=== PATIENT | male | born 1935 | race Hispanic/Latino ===

== ENCOUNTER 2020-11-14 09:45 | Emergency (ER) | payer MEDICARE ==
--- NOTE | 2020-11-14 11:46 | Emergency Department Report ---
HPI - General Chief Complaint: Extremity Injury, Lower Time Seen by Provider: 11/14/20 11:35 - HPI HPI: Room 35 The patient is an 85-year-old male present with a chief complaint of left thigh pain. Patient states he has had pain to the medial aspect of the left upper thigh for the past 3 weeks. Patient states the pain began 3 to 4 days after his first Covid vaccination (10/18/2020). Patient denied any preceding trauma. Patient denies testicular pain. Patient denies nausea/vomiting or abdominal pain. Patient denies dysuria. Patient states he has the pain whenever he weight bears ED Past Medical Hx - Past Medical History Hx Hypertension: Yes Hx GERD: Yes Additional medical history: PROSTATE PROBLEM/GERD - Surgical History Additional Surgical History: PROSTATE SURGERY 05/18/15 - Social History Smoking Status: Former Smoker (None x20 years) Substance Use Type: None - Medications Home Medications: Home Medications Medication Instructions Recorded Confirmed Last Taken Type Pantoprazole [Protonix TAB] 40 mg PO QDAY 05/22/15 09/02/15 09/01/15 History Tamsulosin [Flomax] 0.4 mg PO QDAY 05/22/15 09/02/15 09/01/15 History Apixaban [Eliquis] 5 mg PO Q12HR #14 tablet 07/13/20 Unknown Rx Ascorbic Acid [Vitamin C] 1,000 mg PO BID #14 tablet 07/13/20 Unknown Rx Cholecalciferol (Vitamin D3) 5,000 unit PO DAILY #7 tablet 07/13/20 Unknown Rx [Vitamin D3] Zinc Sulfate 220 mg PO BID #14 capsule 07/13/20 Unknown Rx dexAMETHasone [Decadron] 6 mg PO Q24HR #5 tablet 07/13/20 Unknown Rx Cyclobenzaprine [Flexeril] 10 mg PO TID PRN #10 tablet 11/14/20 Unknown Rx Ibuprofen [Motrin 800 MG tab] 800 mg PO Q8HR PRN #20 tablet 11/14/20 Unknown Rx ED Review of Systems ROS: Stated complaint: L LEG PAIN Other details as noted in HPI Constitutional: denies: fever Eyes: denies: eye pain ENT: denies: throat pain Respiratory: no symptoms reported Cardiovascular: denies: chest pain Endocrine: no symptoms reported Gastrointestinal: denies: abdominal pain, nausea, vomiting Genitourinary: denies: dysuria, testicular pain Musculoskeletal: myalgia Neurological: denies: headache Physical Exam - Physical Exam Vital Signs: Vital Signs 11/14/20 10:05 Temperature 97.9 F Pulse Rate 107 H Respiratory 20 Rate Blood Pressure 123/85 O2 Sat by Pulse 98 Oximetry Physical Exam: GENERAL: The patient is well-developed well-nourished male sitting on stretcher not appearing to be in acute distress. [] HEENT: Normocephalic. Atraumatic. Extraocular motions are intact. Patient has moist mucous membranes. NECK: Supple. Trachea midline CHEST/LUNGS: Clear to auscultation. There is no respiratory distress noted. HEART/CARDIOVASCULAR: Regular. There is no tachycardia. There is no gallop rub or murmur. ABDOMEN: Abdomen is soft, nontender. Patient has normal bowel sounds. There is no abdominal distention. SKIN: There is no rash. There is no edema. There is no diaphoresis. NEURO: The patient is awake, alert, and oriented. The patient is cooperative. The patient has no focal neurologic deficits. The patient has normal speech MUSCULOSKELETAL: There is no evidence of acute injury. ED Course Vital Signs 11/14/20 10:05 Temperature 97.9 F Pulse Rate 107 H Respiratory 20 Rate Blood Pressure 123/85 O2 Sat by Pulse 98 Oximetry ED Medical Decision Making - Lab Data Result diagrams: 11/14/20 12:02 11/14/20 12:02 Laboratory Tests 11/14/20 11/14/20 11/14/20 12:02 12:02 12:02 WBC 6.6 RBC 4.67 Hgb 15.4 H Hct 44.0 MCV 94 MCH 33 H MCHC 35 H RDW 13.5 Plt Count 150 Lymph % (Auto) 40.2 H Faulk % (Auto) 12.0 H Eos % (Auto) 3.1 Baso % (Auto) 0.9 Lymph # (Auto) 2.7 Faulk # (Auto) 0.8 Eos # (Auto) 0.2 Baso # (Auto) 0.1 Seg Neutrophils % 43.8 Seg Neutrophils # 2.9 Sodium 141 Potassium 4.9 Chloride 104.8 Carbon Dioxide 28 Anion Gap 13 BUN 15 Creatinine 1.1 Estimated GFR > 60 BUN/Creatinine Ratio 14 Glucose 89 Calcium 8.9 Total Creatine Kinase 57 - Radiology Data Radiology results: report reviewed (Left lower extremity Doppler, CTA abdomen femoral artery), image reviewed (Left lower extremity Doppler, CTA abdomen femoral artery) [facility] [address] [place] [address] Vascular Lab Report Signed Patient: MARV JOHNSON MR#: [id number] : 1935 Acct:[id number] Age/Sex: 85 / M ADM Date: 11/14/20 Loc: ED Att ending Dr: Ordering Physician: STEVEN TELLO MD Date of Service: 11/14/20 Procedure(s): VL venous duplex LE LT Accession Number(s): [id number] cc: STEVEN TELLO MD DUPLEX DOPPLER LOWER EXTREMITY VEINS, LEFT INDICATION / CLINICAL INFORMATION: Left leg pain. TECHNIQUE: Duplex doppler imaging was performed through the veins of the left lower extremity using venous compression and other maneuvers. COMPARISON: 07/11/2020 FINDINGS: LEFT COMMON FEMORAL VEIN: Negative. LEFT FEMORAL VEIN: Negative. LEFT POPLITEAL VEIN: Negative. LEFT CALF VEINS: Negative. ADDITIONAL FINDINGS: None. IMPRESSION: 1. No sonographic evidence for DVT in the left lower extremity. Signer Name: Rene Vieira MD Signed: 11/14/2020 1:45 PM Workstation Name: [id number] Transcribed By: RH Dictated By: RENE VIEIRA III Electronically Authenticated By: RENE VIEIRA III Signed Date/Time: 11/14/20 134 DD/ 44 TD/TT: Print Cancel [address] [address] Cat Scan Report Signed Patient: MARV JOHNSON MR#: [id number] : 1935 Acct:[id number] Age/Sex: 85 / M ADM Date: 11/14/20 Loc: ED Attending Dr: Ordering Physician: STEVEN TELLO MD Date of Service: 11/14/20 Procedure(s): CT angio abd/femoral abd aorta Accession Number(s): [id number] cc: STEVEN TELLO MD CTA ABDOMEN, PELVIS, AND LOWER EXTREMITIES WITH AND WITHOUT CONTRAST INDICATION: Left inguinal fossa pain. Left lower extremity pain. TECHNIQUE: Axial CT images were obtained through the abdomen, pelvis and lower extremities after injection of 100 cc Omnipaque 350 IV contrast. 3 plane MIP reconstructions were produced. All CT scans at this location are performed using CT dose reduction for ALARA by means of automated exposure control. COMPARISON: None available. FINDINGS: CTA ABDOMEN: Abdominal Aorta: Normal in caliber and mildly calcified without other significant abnormalities. Celiac Artery: No significant abnormality. Superior Mesenteric Artery: Mild nonobstructive atherosclerosis is seen at the origin of the SMA without other significant abnormalities. Right Renal Artery: Mild nonobstructive atherosclerosis is seen at the vessel origin without other significant abnormalities. Left Renal Artery: Mild nonobstructive atherosclerosis is seen at the vessel origin without other significant abnormalities. Inferior Mesenteric Artery: No significant abnormality. CTA PELVIS: RIGHT: - Common Iliac Artery: Mild nonobstructive atherosclerosis is noted without other significant abnormalities. - Internal Iliac Artery: Mild nonobstructive atherosclerosis is noted without other significant abnormalities. - External Iliac Artery: Mild nonobstructive atherosclerosis is seen distally without other significant abnormalities. LEFT: - Common Iliac Artery: Mild nonobstructive atherosclerosis is present without other significant abnormalities. - Internal Iliac Artery: Mild nonobstructive atherosclerosis is present without other significant abnormalities. - External Iliac Artery: No significant abnormality. CTA LOWER EXTREMITIES: RIGHT LOWER EXTREMITY: - Common Femoral Artery: No significant abnormality. - Superficial Femoral Artery: Mild nonobstructive atherosclerosis is seen along the distal third of the vessel without other significant abnormalities. - Profunda Femoral Artery: No significant abnormality. - Popliteal Artery: Mild nonobstructive atherosclerosis is noted without other significant abnormalities. - Anterior Tibial Artery: There is short segment occlusion along the proximal third of the leg with distal reconstitution of flow. Additional short segment occlusions are noted distally with reconstitution of flow subsequently. The dorsalis pedis artery is occluded at its origin with distal reconstitution of flow. - Tibioperoneal Trunk: Mild nonobstructive atherosclerosis is noted without other significant abnormalities. - Posterior Tibial Artery: Patent and normal in caliber at its origin with occlusion noted along the middle third of the leg with distal reconstitution of flow just above the ankle. - Peroneal Artery: No significant abnormality. - Ankle runoff: Three vessel. LEFT LOWER EXTREMITY: - Common Femoral Artery: No significant abnormality. - Superficial Femoral Artery: No significant abnormality. - Profunda Femoral Artery: No significant abnormality. - Popliteal Artery: No significant abnormality. - Anterior Tibial Artery: Moderate calcification is seen along the proximal third of the vessel with associated mild to moderate obstruction. No other significant abnormalities. - Tibioperoneal Trunk: No significant abnormality. - Posterior Tibial Artery: Short segment occlusion is seen along the distal third of the leg with reconstitution of flow via collaterals. No other significant abnormality. - Peroneal Artery: No significant abnormality. - Ankle runoff: Three vessel. NONTARGET STRUCTURES: CHEST: Mild emphysema is noted along the lung bases with atelectasis/scarring. There is a moderate hiatal hernia without an associated acute complication. ABDOMEN:No significant abnormality. PELVIS:No significant abnormality. LOWER EXTREMITIES:No significant abnormality. SKELETAL: No acute abnormalities. The bones are demineralized with moderate degenerative changes throughout the spine and pelvis. ADDITIONAL FINDINGS: None. IMPRESSION: 1. No acute abnormalities to explain the patient's left inguinal pain. 2. 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 Otherwise mild nonobstructive atherosclerosis along the right lower extremity arteries as above. 3. Mild to moderate obstruction of the proximal left anterior tibial artery and distal occlusion of the left posterior tibial artery with rec onstitution of flow. No other significant arterial disease along the left lower extremity. 4. Additional findings as above. Signer Name: Lan Cervantes MD Signed: 11/14/2020 3:25 PM Workstation Name: [id number] Transcribed By: JARRETT Dictated By: Lan Cervantes MD Electronically Authenticated By: Lan Cervantes MD Signed Date/Time: 11/14/20 1525 DD/ 1512 TD/TT: Print Cancel - Differential Diagnosis Muscle strain, femoral hernia, aortic dissection, DVT, Critical care attestation.: If time is entered above; I have spent that time in minutes in the direct care of this critically ill patient, excluding procedure time. ED Disposition Clinical Impression: Left thigh pain Disposition: DC-01 TO HOME OR SELFCARE Is pt being admited?: No Does the pt Need Aspirin: No Condition: Stable Additional Instructions: Return to the emergency department should you develop worsening symptoms, inability to tolerate food or liquids, high fever or any other concerns Prescriptions: Cyclobenzaprine [Flexeril] 10 mg PO TID PRN #10 tablet PRN Reason: Muscle Spasm Ibuprofen [Motrin 800 MG tab] 800 mg PO Q8HR PRN #20 tablet PRN Reason: Pain, Moderate (4-6) Referrals: PRIMARY CARE, [Primary Care Provider] - 3-5 Days ALEXX DIAZ MD [Staff Physician] - 3-5 Days MADAI MIDDLETON MD [Staff Physician] - 3-5 Days (Dr. Middleton is a vascular surgeon. Please follow-up with him for further evaluation) Time of Disposition: 15:40
[2020-11-14 12:32] LABS: Basophils # (Auto) 0.1 K/mm3 (0.0-0.1); Basophils % (Auto) 0.9 % (0.0-1.8); Eosinophils # (Auto) 0.2 K/mm3 (0.0-0.4); Eosinophils % (Auto) 3.1 % (0.0-4.3); Hemoglobin 15.4 gm/dl (11.8-15.2); Lymphocytes # (Auto) 2.7 K/mm3 (1.2-5.4); Lymphocytes % (Auto) 40.2 % (13.4-35.0); Mean Corpuscular HGB Conc 35 % (32-34); Mean Corpuscular Volume 94 fl (84-94); Monocytes # (Auto) 0.8 K/mm3 (0.0-0.8); Platelet Count 150 K/mm3 (140-440); Red Blood Count 4.67 M/mm3 (3.65-5.03); Red Cell Distribution Width 13.5 % (13.2-15.2)
[2020-11-14 12:41] LABS: BUN/Creatinine Ratio 14; Blood Urea Nitrogen 15 mg/dL (9-20); Calcium 8.9 mg/dL (8.4-10.2); Hemolysis Index 9
--- NOTE | 2020-11-14 13:49 | Vascular Lab Report ---
DUPLEX DOPPLER LOWER EXTREMITY VEINS, LEFT INDICATION / CLINICAL INFORMATION: Left leg pain. TECHNIQUE: Duplex doppler imaging was performed through the veins of the left lower extremity using venous compr ession and other maneuvers. COMPARISON: 07/11/2020 FINDINGS: LEFT COMMON FEMORAL VEIN: Negative. LEFT FEMORAL VEIN: Negative. LEFT POPLITEAL VEIN: Negative. LEFT CALF VEINS: Negative. ADDITIONAL FINDINGS: None. IMPRESSION: 1. No sonographic evidence for DVT in the left lower extremity. Signer Name: Rickie Vieira MD Signed: 11/14/2020 1:45 PM Workstation Name: [id number] [email or web address] - [id number]
--- NOTE | 2020-11-14 15:29 | Cat Scan Report ---
CTA ABDOMEN, PELVIS, AND LOWER EXTREMITIES WITH AND WITHOUT CONTRAST INDICATION: Left inguinal fossa pain. Left lower extremity pain. TECHNIQUE: Axial CT images were obtained through the abdomen, pelvis and lower extremities after injection of 10 0 cc Omnipaque 350 IV contrast. 3 plane MIP reconstructions were produced. All CT scans at this [facility] are performed using CT dose reduction for ALARA by means of automated exposure control. COMPARISON: None available. FINDINGS: CTA ABDOMEN: Abdominal Aorta: Normal in caliber and mildly calcified without other significant abnormalities. Celiac Artery: No significant abnormality. Superior Mesenteric Artery: Mild nonobstructive atherosclerosis is seen at the origin of the SMA with out other significant abnormalities. Right Renal Artery: Mild nonobstructive atherosclerosis is seen at the vessel origin without other si gnificant abnormalities. Left Renal Artery: Mild nonobstructive atherosclerosis is seen at the vessel origin without other sig nificant abnormalities. Inferior Mesenteric Artery: No significant abnormality. CTA PELVIS: RIGHT: - Common Iliac Artery: Mild nonobstructive atherosclerosis is noted without other significant abnorma lities. - Internal Iliac Artery: Mild nonobstructive atherosclerosis is noted without other significant abnor malities. - External Iliac Artery: Mild nonobstructive atherosclerosis is seen distally without other significa nt abnormalities. LEFT: - Common Iliac Artery: Mild nonobstructive atherosclerosis is present without other significant abnor malities. - Internal Iliac Artery: Mild nonobstructive atherosclerosis is present without other significant abn ormalities. - External Iliac Artery: No significant abnormality. CTA LOWER EXTREMITIES: RIGHT LOWER EXTREMITY: - Common Femoral Artery: No significant abnormality. - Superficial Femoral Artery: Mild nonobstructive atherosclerosis is seen along the distal third of t he vessel without other significant abnormalities. - Profunda Femoral Artery: No significant abnormality. - Popliteal Artery: Mild nonobstructive atherosclerosis is noted without other significant abnormalit ies. - Anterior Tibial Artery: There is short segment occlusion along the proximal third of the leg with d istal reconstitution of flow. Additional short segment occlusions are noted distally with reconstitut ion of flow subsequently. The dorsalis pedis artery is occluded at its origin with distal reconstitut ion of flow. - Tibioperoneal Trunk: Mild nonobstructive atherosclerosis is noted without other significant abnorma lities. - Posterior Tibial Artery: Patent and normal in caliber at its origin with occlusion noted along the middle third of the leg with distal reconstitution of flow just above the ankle. - Peroneal Artery: No significant abnormality. - Ankle runoff: Three vessel. LEFT LOWER EXTREMITY: - Common Femoral Artery: No significant abnormality. - Superficial Femoral Artery: No significant abnormality. - Profunda Femoral Artery: No significant abnormality. - Popliteal Artery: No significant abnormality. - Anterior Tibial Artery: Moderate calcification is seen along the proximal third of the vessel with associated mild to moderate obstruction. No other significant abnormalities. - Tibioperoneal Trunk: No significant abnormality. - Posterior Tibial Artery: Short segment occlusion is seen along the distal third of the leg with rec onstitution of flow via collaterals. No other significant abnormality. - Peroneal Artery: No significant abnormality. - Ankle runoff: Three vessel. NONTARGET STRUCTURES: CHEST: Mild emphysema is noted along the lung bases with atelectasis/scarring. There is a moderate hi atal hernia without an associated acute complication. ABDOMEN:No significant abnormality. PELVIS:No significant abnormality. LOWER EXTREMITIES:No significant abnormality. SKELETAL: No acute abnormalities. The bones are demineralized with moderate degenerative changes thro ughout the spine and pelvis. ADDITIONAL FINDINGS: None. IMPRESSION: 1. No acute abnormalities to explain the patient's left inguinal pain. 2. 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 Otherwise mild nonobstructive atherosclerosis along the right lower extremity arteries as above. 3. Mild to moderate obstruction of the proximal left anterior tibial artery and distal occlusion of t he left posterior tibial artery with reconstitution of flow. No other significant arterial disease al quang the left lower extremity. 4. Additional findings as above. Signer Name: Lan Cervantes MD Signed: 11/14/2020 3:25 PM Workstation Name: [id number]
[2020-11-14 15:32] VITALS: BP 121/85
== END 2020-11-14 16:17 | disposition home or self-care (01) ==
LOC: ED 09:45
DX: M79.652 Pain in left thigh (principal); I10 Essential (primary) hypertension; K21.9 Gastro-esophageal reflux disease without esophagitis; Z79.899 Other long term (current) drug therapy; Z98.890 Other specified postprocedural states; Z87.891 Personal history of nicotine dependence
CPT/HCPCS: 36415; 75635; 80048; 82550; 85025; 93971; 99284; Q9967